=== PATIENT | male | born 1960 | race Caucasian/White ===

== ENCOUNTER 2017-09-03 17:21 | Inpatient (IN) | payer MEDICAID, OTHER ==
[~2017-09-03] VITALS: Ht 182.9 cm; Wt 70.3 kg
--- NOTE | 2017-09-03 19:30 | NUR ---
HAND CROWN POUNCER NOTES Pt arrived on Med/Surg unit via gurney accompanied by EMT personnel and family members. Pt is a direct admit from [facility] w/ c/o x1 bright red stool this am. Pt denies any past medical history, past surgical history. Head to toe assessment done. Pupils are reactive to light. Denies any SOB/chest pain. Respirations are even and unlabored, not in any acute distress noted. Lung sounds are clear upon auscultation. Bowel sounds are present in all four quadrants, denies any pain upon palpation. Abdomen is soft and nondistended. Denies any bladder discomfort. Pt able to ambulate to bathroom with supervision with no difficulties. Peripheral IV site to right wrist, patent. Dressing kept clean and dry. Skin assessment done w/ no skin injuries noted. Skin is intact, kept clean and dry, warm to touch. No edema noted to BUE/BLE. Reminded pt to use call light when assistance is needed, call light is left within reach. Will continue to monitor throughout shift.
[2017-09-03 20:00] VITALS: BP 109/59
[2017-09-03] MEDS ORDERED: CIPR-262 PO (20:16)
[2017-09-03] MEDS ORDERED: METR250T PO (20:16)
[2017-09-03] MEDS ORDERED: ONDANSETRON HCL/PF 4 MG/2 ML VIAL IVP PRN (20:30)
[2017-09-03] MEDS ORDERED: Z GUARD REMEDY 2 OZ OINT TP PRN (20:30)
[2017-09-03] MEDS ORDERED: MAGNESIUM HYDROXIDE 30 ML UDC PO PRN (20:30)
[2017-09-03] MEDS ORDERED: HYDROCODONE/APAP 5/325MG 1 EACH TABLET PO PRN (20:30)
[2017-09-03] MEDS ORDERED: MAG HYDROX/AL HYDROX/SIMETH 30 ML UDC PO PRN (20:30)
[2017-09-03] MEDS ORDERED: hydrALAZINE HCL 25 MG TABLET PO PRN (20:30)
[2017-09-03] MEDS ORDERED: ACETAMINOPHEN 325 MG TABLET PO PRN (20:30)
[2017-09-03] MEDS ORDERED: ZOLPIDEM TARTRATE 5 MG TABLET PO PRN (20:30)
[2017-09-03] MEDS ORDERED: MORPHINE SULFATE INJ 2 MG/ML DISP.SYRIN IV PRN (20:30)
--- NOTE | 2017-09-03 20:30 | NUR ---
RN NOTES Spoke with Dr. Campbell and made aware of new admit. Per Dr. Campbell, she will carry out orders. Pt and family made aware.
[2017-09-03 21:00] VITALS: BP 109/59
[2017-09-03 21:08] LABS: CALCIUM, SERUM 8.1 mg/dL (8.5-10.1); CREATININE 0.8 mg/dL (0.6-1.3); MAGNESIUM 2.1 mg/dL (1.8-2.4); POTASSIUM 3.7 mmol/L (3.5-5.1)
[2017-09-03] MEDS: SENNOSIDES 8.6 MG TABLET PO SCH (21:10)
[2017-09-03] MEDS: POLYETHYLENE GLYCOL 3350 17 GM POWD.PACK PO SCH (21:10)
[2017-09-03 21:18] LABS: INR 1.08 (0.87-1.13)
[2017-09-03 21:29] LABS: BASOPHILS % (AUTO) 0.2 % (0.0-2.0); EOSINOPHILS # (AUTO) 0.1 /CMM (0.0-0.7); EOSINOPHILS % (AUTO) 1.9 % (0.0-6.0); HEMATOCRIT 43 % (39-51); HEMOGLOBIN 15.1 g/dL (13.5-17.5); LYMPHOCYTES # (AUTO) 1.7 /CMM (0.8-4.8); MEAN CORPUSCULAR HEMOGLOBIN 32 PG (26.0-33.0); MEAN CORPUSCULAR HGB CONC 35 g/dl (31.0-36.0); MEAN CORPUSCULAR VOLUME 91 fL (80-96); MONOCYTES # (AUTO) 0.6 /CMM (0.1-1.30); NEUTROPHILS # (AUTO) 4.7 /CMM (1.8-8.9); NEUTROPHILS % (AUTO) 65.9 % (43.0-81.0); PLATELET COUNT (AUTO) 289 /CMM (150-450); RDW COEFFICIENT OF VARIATION 13.6 (11.5-15.0); RED BLOOD CELL COUNT(AUTO) 4.71 MIL/uL (4.5-6.0); WHITE BLOOD COUNT (AUTO) 7.1 K/uL (4.3-11.0)
[2017-09-03] MEDS: IV NS 0.9% 1,000 ML IV PRN (21:46)
--- NOTE | 2017-09-04 06:30 | NUR ---
RN CLOSING NOTES All due meds given, needs met and rendered. Pt slept comfortably throughout the night. Remains alert and responsive. Respirations are even and unlabored, not in any acute distress noted. Denies any SOB or pain at this time. IV site to right wrist intact, patent. Dressing kept clean and dry. No new skin injuires noted. Pt denies any abdominal pain at this time. No BM noted during shift. No s/sx of hypo/hypertension noted. No s/sx of active bleeding noted. Reminded pt to use call light when assistance is needed, call light is left within reach. Will endorse to next shift for continuity of care.
[2017-09-04 07:11] LABS: BASOPHILS % (AUTO) 0.2 % (0.0-2.0); EOSINOPHILS # (AUTO) 0.1 /CMM (0.0-0.7); EOSINOPHILS % (AUTO) 1.4 % (0.0-6.0); HEMATOCRIT 45 % (39-51); HEMOGLOBIN 15.7 g/dL (13.5-17.5); LYMPHOCYTES # (AUTO) 1.4 /CMM (0.8-4.8); LYMPHOCYTES % (AUTO) 19.8 % (20.0-44.0); MEAN CORPUSCULAR HEMOGLOBIN 32 PG (26.0-33.0); MEAN CORPUSCULAR HGB CONC 35 g/dl (31.0-36.0); MEAN CORPUSCULAR VOLUME 90 fL (80-96); MONOCYTES # (AUTO) 0.5 /CMM (0.1-1.30); MONOCYTES % (AUTO) 6.6 % (2.0-12.0); NEUTROPHILS # (AUTO) 5.1 /CMM (1.8-8.9); PLATELET COUNT (AUTO) 314 /CMM (150-450); RDW COEFFICIENT OF VARIATION 13.6 (11.5-15.0); RED BLOOD CELL COUNT(AUTO) 4.97 MIL/uL (4.5-6.0); WHITE BLOOD COUNT (AUTO) 7.1 K/uL (4.3-11.0)
--- NOTE | 2017-09-04 07:25 | NUR ---
RN OPENING NOTES RECEIVED PT. IN BED A&OX4. BREATHING UNLABORED, AND EVENLY ON ROOM AIR. NO S/S OF ACUTE DISTRESS, AND PT. DENIES PAIN. IV FLUIDS RUNNING AT 75 ML/HR. BED IS IN LOWEST, AND LOCKED POSITION, 2 SIDE RAILS UP, AND INSTRUCTED PT. TO USE CALL LIGHT FOR ASSISTANCE. ALL NEEDS MET. WILL CONTINUE TO ASSESS AND MONITOR.
--- NOTE | 2017-09-04 07:35 | NUR ---
RN NOTES MRSA CULTURE COLLECTED FROM BOTH NARES. PT. TOLERATED PROCEDURE WELL.
[2017-09-04 07:46] LABS: CALCIUM, SERUM 8.4 mg/dL (8.5-10.1); CREATININE 0.8 mg/dL (0.6-1.3); MAGNESIUM 2.2 mg/dL (1.8-2.4); PHOSPHORUS 2.7 mg/dL (2.5-4.9); POTASSIUM 4.2 mmol/L (3.5-5.1)
[2017-09-04 08:00] VITALS: BP 100/63
[2017-09-04] MEDS: PANTOPRAZOLE 40 MG TABLET.DR PO SCH (08:29)
[2017-09-04] MEDS: POLYETHYLENE GLYCOL 3350 17 GM POWD.PACK PO SCH (08:32)
[2017-09-04] MEDS: IV NS 0.9% 1,000 ML IV PRN ×2 (10:45→23:30)
[2017-09-04 16:16] VITALS: BP 108/53
--- NOTE | 2017-09-04 19:20 | NUR ---
MS/RN NOTES RECEIVED PT. SITTING UP IN BED. AWAKE, ALERT AND ORIENTED X4. BREATHING EVEN AND UNLABORED ON ROOM AIR. NO SOB, RESPIRATORY DISTRESS OR COMPLAINTS OF PAIN NOTED AT THIS TIME. PT. WITH RIGHT WRIST 20 GAUGE PERIPHERAL IV PRESENT, PATENT AND INTACT ADMINISTERING TO PT. NS @ 75 ML/HR. PT. WITH FAMILY MEMBERS PRESENT AT BEDSIDE. PER DAYSHIFT NURSE PT. WILL BE NPO AFTER MIDNIGHT PENDING EGD TOMORROW, CONSENT IS SIGNED AND PLACED IN CHART. PT. IS AWARE AND VERBALIZED UNDERSTANDING OF BEING NPO AFTER MIDNIGHT. BED LOCKED AND IN LOWEST POSITION, SIDE RAILS UP X2, CALL LIGHT WITHIN REACH, WILL CONTINUE TO MONITOR.
--- NOTE | 2017-09-04 19:23 | NUR ---
RN CLOSING NOTES PT. IN BED A&OX4. BREATHING UNLABORED, AND EVENLY ON ROOM AIR. NO S/S OF ACUTE DISTRESS, AND PT. DENIES PAIN. IV FLUIDS RUNNING AT 75 ML/HR. PT. WILL BE NPO AFTER MIDNIGHT FOR AN EGD PROCEDURE IN THE MORNING. EGD CONSENT FORMS SIGNED AND PLACED IN CHART. BED IS IN LOWEST, AND LOCKED POSITION, 2 SIDE RAILS UP, AND INSTRUCTED PT. TO USE CALL LIGHT FOR ASSISTANCE. ALL NEEDS MET. WILL CONTINUE TO ASSESS AND MONITOR.
[2017-09-04 20:00] VITALS: BP 106/58
[2017-09-04] MEDS: SENNOSIDES 8.6 MG TABLET PO SCH (22:57)
--- NOTE | 2017-09-05 06:11 | NUR ---
MS/RN NOTES PT. IS LYING IN BED RESTING. BREATHING EVEN AND UNLABORED ON ROOM AIR. NO SOB, RESPIRATORY DISTRESS OR COMPLAINTS OF PAIN NOTED AT THIS TIME AND THROUGHOUT SHIFT. PT. WITH RIGHT WRIST 20 GAUGE PERIPHERAL IV PRESENT, PATENT AND INTACT ADMINISTERING TO PT. NS @ 75 ML/HR. PT. HAS BEEN NPO SINCE MIDNIGHT PENDING EGD TODAY. ALL PT. NEEDS MET. BED LOCKED AND IN LOWEST POSITION, SIDE RAILS UP X2, CALL LIGHT WITHIN REACH, WILL ENDORSE TO DAYSHIFT NURSE FOR CONTINUITY OF CARE.
[2017-09-05] MEDS: PANTOPRAZOLE 40 MG TABLET.DR PO SCH (07:30)
[2017-09-05 08:00] VITALS: BP 104/57
[2017-09-05 08:01] LABS: BASOPHILS % (AUTO) 0.1 % (0.0-2.0); EOSINOPHILS # (AUTO) 0.1 /CMM (0.0-0.7); EOSINOPHILS % (AUTO) 1.3 % (0.0-6.0); HEMATOCRIT 43 % (39-51); HEMOGLOBIN 15.1 g/dL (13.5-17.5); LYMPHOCYTES # (AUTO) 1.3 /CMM (0.8-4.8); LYMPHOCYTES % (AUTO) 19.9 % (20.0-44.0); MEAN CORPUSCULAR HEMOGLOBIN 32 PG (26.0-33.0); MEAN CORPUSCULAR HGB CONC 35 g/dl (31.0-36.0); MEAN CORPUSCULAR VOLUME 91 fL (80-96); MONOCYTES # (AUTO) 0.5 /CMM (0.1-1.30); MONOCYTES % (AUTO) 7.6 % (2.0-12.0); NEUTROPHILS # (AUTO) 4.8 /CMM (1.8-8.9); NEUTROPHILS % (AUTO) 71.1 % (43.0-81.0); PLATELET COUNT (AUTO) 305 /CMM (150-450); RDW COEFFICIENT OF VARIATION 13.6 (11.5-15.0); RED BLOOD CELL COUNT(AUTO) 4.76 MIL/uL (4.5-6.0); WHITE BLOOD COUNT (AUTO) 6.7 K/uL (4.3-11.0)
[2017-09-05 08:25] LABS: CALCIUM, SERUM 8.3 mg/dL (8.5-10.1); CREATININE 0.7 mg/dL (0.6-1.3); MAGNESIUM 2.1 mg/dL (1.8-2.4); PHOSPHORUS 2.7 mg/dL (2.5-4.9)
--- NOTE | 2017-09-05 08:44 | NUR ---
MS RN OPENING NOTE RECEIVED BEDSIDE SBAR REPORT ON THE PATIENT. PATIENT IS A/0 X3, COOPERATIVE, BOLIVIAN SPEAKING. PATIENT IS AWAKE AND RESPONSIVE IN BED. DENIES PAIN/DISCOMFORT AT THIS TIME. CHEST RISING EQUALLY BILATERALLY. PATIENT IS IN BED. BED IS LOCKED, IN LOWEST POSITION, SIDE RAILS UP X3, BED ALARM IS ON. PATIENT IS AMBULATORY WITH ASSIST. USES URINAL. URINAL AT THE BEDSIDE. CALL LIGHT WITHIN REACH. ALL BELONGINGS IN CLOSE APPROXIMATION AND ACCESSIBLE. ALL NEEDS ARE MET AT THIS TIME. EDUCATED TO CALL USING THE CALL LIGHT FOR ASSISTANCE. VERBALIZED UNDERSTANDING. WILL CONTINUE TO ASSESS/MONITOR THROUGHOUT THE SHIFT.
--- NOTE | 2017-09-05 08:50 | NUR ---
SPOKE TO OR TO FIND OPUT WHEN IS PATIENT'S EGD SCHEDULED FOR. PER OR DR. RODRIGUEZ'S CASES ARE STARTING FROM 11AM. PATIENT IS SECOND ON THE LIST. PATIENT INFORMED.
[2017-09-05] MEDS: POLYETHYLENE GLYCOL 3350 17 GM POWD.PACK PO SCH (08:57)
--- NOTE | 2017-09-05 08:57 | NUR ---
PATIENT IS NPO Addendum: 09/05/17 at 0859 by LYNNETTE DUMONT RN MEDICATIONS HELD AT THIS TIME.
--- NOTE | 2017-09-05 11:20 | NUR ---
YASMIN MASTERS AT THE BEDSIDE. PER YASMIN PATIENT'S FAMILY TO PROVIDE [employer] RECORDS. DAUGHTER INFORMED. WILL PROVIDE WITH [employer] RECORDS
--- NOTE | 2017-09-05 11:48 | NUR ---
PATIENT LEFT THE UNIT IN STABLE CONDITION TO GO TO OR FOR EGD. ACCOMPANIED.
--- NOTE | 2017-09-05 12:47 | NUR ---
PATIENT IS BACK FROM EGD. VS WNL: BP: 117/76 TEMP98.2 HR 74 SPO2 98% RA
--- NOTE | 2017-09-05 15:41 | NUR ---
DISCHARGE DISCUSSED WITH THE PATIENT AT THE BEDSIDE. TRANSLATED FOR YASMIN MASTERS.
[2017-09-05 15:57] VITALS: BP 111/70
--- NOTE | 2017-09-05 18:13 | NUR ---
DISCHARGE INSTRUCTIONS PROVIDED TO PATIENT/ AT THE BEDSDIE. DISCHARGE INSTRUCTIONS PROVIDED TO THE PATIENT. PATIENT/ VERBALIZED UNDERSTANDING OF THE TEACHINGS. ALL BELONGINSGS ACCOUNTED FOR. IV CATHETER REMOVED WITH THE TIP INTACT. OCLUSIVE DRESSING APPLIED. PATIENT LEFT THE UNIT IN STABLE CONDITION ACCOMPANIED BY THE .
== END 2017-09-05 18:10 | disposition home or self-care (01) | DRG 241 ==
LOC: MED 19:17
PROVIDERS: ADMIT Internal Medicine; ATTEND Internal Medicine
PROC: 0DB68ZX Excision of Stomach, Via Natural or Artificial Opening Endoscopic, Diagnostic (ICD-10-PCS; principal; 2017-09-05 11:25)
DX: K29.71 Gastritis, unspecified, with bleeding (principal); D63.8 Anemia in other chronic diseases classified elsewhere; K21.9 Gastro-esophageal reflux disease without esophagitis; F17.210 Nicotine dependence, cigarettes, uncomplicated; R73.9 Hyperglycemia, unspecified
CPT/HCPCS: 36415; 80048-TC; 83540-TC; 83735-TC; 84100-TC; 85025-TC; 85610-TC; 86850-TC; 87081-TC; J2704; J3490; J7030; Z7610